=== PATIENT | male | born 1980 | race Caucasian/White ===

== ENCOUNTER 2021-03-29 15:12 | Emergency (ER) | payer MEDICAID ==
[~2021-03-29] VITALS: Ht 185.4 cm; Wt 82.7 kg
[2021-03-29 15:19] VITALS: BP 133/75
[2021-03-29] MEDS ORDERED: ORPH100T2 PO (15:38)
== END 2021-03-29 16:01 | disposition home or self-care (01) ==
LOC: ER 15:12
DX: S39.012A Strain of muscle, fascia and tendon of lower back, initial encounter (principal); F41.9 Anxiety disorder, unspecified; M19.90 Unspecified osteoarthritis, unspecified site; F17.200 Nicotine dependence, unspecified, uncomplicated; F12.90 Cannabis use, unspecified, uncomplicated; Z98.890 Other specified postprocedural states; Z72.89 Other problems related to lifestyle; Z88.0 Allergy status to penicillin; Z88.2 Allergy status to sulfonamides; Z79.899 Other long term (current) drug therapy; X58.XXXA Exposure to other specified factors, initial encounter; Y93.89 Activity, other specified; Y92.89 Other specified places as the place of occurrence of the external cause; Y99.8 Other external cause status
CPT/HCPCS: 99283